=== PATIENT | male | born 1985 | race American Indian/Alaskan Native ===

== ENCOUNTER 2021-06-12 00:06 | Emergency (ER) | payer SELFPAY ==
[2021-06-12] MEDS ORDERED: MORPHINE 4 MG/1 ML INJ IV ONE (00:24)
[2021-06-12] MEDS ORDERED: TETANUS,DIPHTHERIA TOXOID ADULT 0.5 ML INJ IM ONE (02:32)
--- NOTE | 2021-06-12 02:45 | XRay Report ---
LEFT FOOT 3 VIEWS INDICATION / CLINICAL INFORMATION: Lower Extremity Injury. COMPARISON: None available. FINDINGS: BONES / JOINT(S): Suspected crushtype injury involving the navicular bone and the medial aspect of th e medial cuneiform bone and posteriorly. No significant arthritis. SOFT TISSUES: Soft tissue injury anteriorly with small amount of soft tissue gas. ADDITIONAL FINDINGS: None. Signer Name: Luis Daniel Bradford MD Signed: 06/12/2021 2:41 AM Workstation Name: [id number]
[2021-06-12 03:20] VITALS: BP 129/90
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
== END 2021-06-12 06:36 | disposition home or self-care (01) ==
LOC: ED 00:06
DX: S91.332A Puncture wound without foreign body, left foot, initial encounter (principal); Z79.899 Other long term (current) drug therapy; W34.09XA Accidental discharge from other specified firearms, initial encounter; Y93.89 Activity, other specified; Y92.89 Other specified places as the place of occurrence of the external cause; Y99.8 Other external cause status
CPT/HCPCS: 73620; 90471; 90714; 96365; 96375; 99283; J0690; J2270